=== PATIENT | female | born 1985 | race Caucasian/White ===

== ENCOUNTER 2020-11-21 20:17 | Emergency (ER) | payer OTHER ==
[2020-11-21 21:39] LABS: HEMOGLOBIN 13.6 gm/dl (12.3-15.3); RED BLOOD COUNT 4.46 M/UL (4.00-5.10); WHITE BLOOD COUNT 7.8 K/UL (4.5-11.0)
[2020-11-22] MEDS ORDERED: IBUPROFEN600 MG PO ×2 (01:37→01:48)
[2020-11-22] MEDS ORDERED: PERCOCET 5/325 T1 EA PO ×2 (01:37→01:48)
== END 2020-11-22 01:28 | disposition home or self-care (01) ==
LOC: ER1 20:17
PROVIDERS: Family Medicine
DX: S20.219A Contusion of unspecified front wall of thorax, initial encounter (principal); V49.40XA Driver injured in collision with unspecified motor vehicles in traffic accident, initial encounter
CPT/HCPCS: 70450; 71045; 71100; 72072; 72100; 72125; 85027; 93005; 96372; 99284; J1885; J2270; J2550

== ENCOUNTER 2022-01-11 14:28 | Inpatient (IN) | payer OTHER ==
[~2022-01-11] VITALS: Ht 165.1 cm; Wt 139.6 kg
[~2022-01-11 14:28] MED LIST: IBUPROFEN600 MG PO; PERCOCET 5/325 T1 EA PO
[2022-01-11 14:59] LABS: RED BLOOD COUNT 4.96 M/UL (4.00-5.10); WHITE BLOOD COUNT 9.1 K/UL (4.5-11.0)
[2022-01-11 15:23] LABS: BUN/CREATININE RATIO 17 (0-10)
[2022-01-12 05:43] LABS: HEMOGLOBIN 13.5 gm/dl (12.3-15.3); RED BLOOD COUNT 4.52 M/UL (4.00-5.10); WHITE BLOOD COUNT 7.1 K/UL (4.5-11.0)
[2022-01-12 05:50] LABS: BUN/CREATININE RATIO 16 (0-10)
[2022-01-13 04:37] LABS: HEMOGLOBIN 13.2 gm/dl (12.3-15.3); RED BLOOD COUNT 4.34 M/UL (4.00-5.10); WHITE BLOOD COUNT 6.8 K/UL (4.5-11.0)
[2022-01-13 05:03] LABS: BUN/CREATININE RATIO 14 (0-10)
[2022-01-13] MEDS ORDERED: COZAAR 50MG TAB50 MG PO (11:43)
[2022-01-13] MEDS ORDERED: TOPAMAX 25 MG T25 MG PO (11:43)
[2022-01-13] MEDS ORDERED: SUMATRIPTAN SUC25 MG PO (11:43)
[2022-01-13] MEDS ORDERED: LEVOFLOXACIN500 MG PO (11:48)
== END 2022-01-13 13:06 | disposition home or self-care (01) | DRG 103 ==
LOC: ER1 14:28 → CCU 16:27 → CDU 16:27 → CCU 17:54
PROVIDERS: Emergency Medicine; Internal Medicine; ADMIT Internal Medicine
DX: G43.909 Migraine, unspecified, not intractable, without status migrainosus (principal); N39.0 Urinary tract infection, site not specified; Z68.43 Body mass index [BMI] 50.0-59.9, adult; G25.1 Drug-induced tremor; Z20.822 Contact with and (suspected) exposure to COVID-19; F19.10 Other psychoactive substance abuse, uncomplicated; I10 Essential (primary) hypertension; R74.01 Elevation of levels of liver transaminase levels; F41.9 Anxiety disorder, unspecified; E66.9 Obesity, unspecified; F32.A Depression, unspecified; F12.10 Cannabis abuse, uncomplicated; Z98.84 Bariatric surgery status
CPT/HCPCS: 36415; 70450; 70496; 70498; 70551; 71045; 80053; 80307; 81001; 82140; 82550; 82553; 82607; 83036; 83605; 83735; 84439; 84443; 84484; 84702; 84703; 85025; 86140; 87040; 87077; 87086; 87186; 92526; 93005; 99285; C9113; J0696; J1200; J2060; J3411; J7030; Q9967

== ENCOUNTER 2022-03-28 13:06 | Emergency (ER) | payer OTHER ==
[~2022-03-28 13:06] MED LIST changes: +COZAAR 50MG TAB50 MG PO; +LEVOFLOXACIN500 MG PO; +SUMATRIPTAN SUC25 MG PO; +TOPAMAX 25 MG T25 MG PO
[2022-03-28 14:48] LABS: HEMOGLOBIN 14.7 gm/dl (12.3-15.3); RED BLOOD COUNT 4.81 M/UL (4.00-5.10); WHITE BLOOD COUNT 10.1 K/UL (4.5-11.0)
[2022-03-28 15:14] LABS: BUN/CREATININE RATIO 24 (0-10)
[2022-03-28] MEDS ORDERED: LACTULOSE20 GM/30 M PO (18:33)
== END 2022-03-28 18:45 | disposition home or self-care (01) ==
LOC: ER1 13:06
PROVIDERS: Family Medicine
DX: O09.521 Supervision of elderly multigravida, first trimester (principal); O99.611 Diseases of the digestive system complicating pregnancy, first trimester; K59.00 Constipation, unspecified; O99.211 Obesity complicating pregnancy, first trimester; E66.01 Morbid (severe) obesity due to excess calories; Z3A.13 13 weeks gestation of pregnancy
CPT/HCPCS: 76815; 80053; 81001; 83690; 84702; 85025; 99284; J2550